=== PATIENT | male | born 1935 | race Caucasian/White ===

== ENCOUNTER 2018-12-25 07:51 | Emergency (ER) | payer MEDICARE, BC ==
[2018-12-25 07:58] VITALS: TEMP 98.3
--- NOTE | 2018-12-25 08:23 | ED ---
General Adult HPI - General Chief complaint: Chest Pain Stated complaint: Chest Pain Time Seen by Provider: 12/25/18 07:57 Source: patient Mode of arrival: wheelchair Limitations: no limitations - History of Present Illness Initial comments: Dictation was produced using [employer] dictation software. please excuse any grammatical, word or spelling errors. Chief Complaint: 83-year-old male presents with 2 days of chest pressure. History of Present Illness: 83-year-old male presents with 2 days of chest pressure. Did not feel like his symptoms are severe. He did not want come to the emergency department given the mild symptoms. He went to his son's house early this morning and total body. Patient was brought to the emergency department by his son. Patient has no history of heart attack. Patient has history of stroke and atrial fibrillation. He is unable course. Patient states he is feeling okay now was concerned that this could be his heart. He is here today because he wants to be checked out to make sure is not having a heart issue. Denies any nausea, vomiting. No radiation of pain to the shoulders or the neck. The ROS documented in this emergency department record has been reviewed and confirmed by me. Those systems with pertinent positive or negative responses have been documented in the HPI. All other systems are other negative and/or noncontributory. PHYSICAL EXAM: General Impression: Alert and oriented x3, not in acute distress HEENT: Normocephalic atraumatic, extra-ocular movements intact, pupils equal and reactive to light bilaterally, mucous membranes moist. Cardiovascular: Heart regular rate and rhythm, S1&S2 audible, no murmurs, rubs or gallops Chest: Lungs clear to auscultation bilaterally, no rhonchi, no wheeze, no rales Abdomen: Bowel sounds present, abdomen soft, non-tender, non-distended, no organomegaly Musculoskeletal: Pulses present and equal in all extremities, no peripheral edema Motor: Power 5/5 bilaterally, no focal deficits noted Neurological: CN II-XII grossly intact, no focal motor or sensory deficits noted Skin: Intact with no visualized rashes Psych: Normal affect and mood ED course: 83-year-old male presents with atypical chest pain with typical features. Signs upon arrival are within acceptable limits. Patient's well- appearing. Physical examination is benign. EKG doesn't show any signs of infarction or ischemia. Patient has history of atrial fibrillation takes liquids. This point with his primary care physician tomorrow.Laboratory evaluation obtained. Patient has mild leukocytosis of 12.9. Metabolic panel is unremarkable. O2 sat troponins are negative. Patient was observed in emergency department for several hours with no change in medical status. X-ray showed possible developing acute infiltrate versus atelectasis. Patient did report some increased coughing. Patient be given Zithromax pack. He has an appointment with his primary care physician tomorrow. Patient told to return to the emergency Department with any worsening symptoms. Vision understandable and agreeable to plan. Patient is given an aspirin. EKG interpretation: Ventricular rate 84, A. fib, QRS 96, QTC 432.. No [place] prolongation, no QTC prolongation, no ST or T-wave changes noted. Overall, this EKG is unremarkable - Related Data Home Medications Medication Instructions Recorded Confirmed metFORMIN HCL [Glucophage] 500 mg PO BID 01/25/15 12/25/18 Atorvastatin [Lipitor] 20 mg PO HS 12/25/18 12/25/18 Lisinopril-Hctz 20-12.5 mg 1 tab PO BID 12/25/18 12/25/18 [Zestoretic 20-12.5] Metoprolol Tartrate [Lopressor] 50 mg PO DAILY 12/25/18 12/25/18 amLODIPine [Norvasc] 5 mg PO BID 12/25/18 12/25/18 Previous Rx's Medication Instructions Recorded Apixaban [Eliquis] 5 mg PO BID #60 tab 07/20/16 Glimepiride [Amaryl] 1 mg PO BID #60 tab 07/20/16 Azithromycin [Zithromax Z-pack] 0 mg PO DIRECTED #6 tab 12/25/18 Allergies Allergy/AdvReac Type Severity Reaction Status Date / Time No Known Allergies Allergy Verified 07/19/16 09:31 Review of Systems ROS Statement: Those systems with pertinent positive or pertinent negative responses have been documented in the HPI. ROS Other: All systems not noted in ROS Statement are negative. Past Medical History Past Medical History: Atrial Fibrillation, Diabetes Mellitus, Hypertension History of Any Multi-Drug Resistant Organisms: None Reported Past Surgical History: Hernia Repair Past Anesthesia/Blood Transfusion Reactions: No Reported Reaction Past Psychological History: No Psychological Hx Reported Smoking Status: Never smoker Past Alcohol Use History: None Reported Past Drug Use History: None Reported General Exam Limitations: no limitations Course Vital Signs 12/25/18 12/25/18 12/25/18 07:56 09:50 10:00 Temperature 98.3 F Pulse Rate 89 68 71 Respiratory 18 18 18 Rate Blood Pressure 157/79 134/88 134/88 O2 Sat by Pulse 95 95 97 Oximetry 12/25/18 12/25/18 12/25/18 10:30 11:00 11:21 Temperature Pulse Rate 74 76 80 Respiratory 20 18 20 Rate Blood Pressure 133/79 145/89 149/78 O2 Sat by Pulse 96 98 Oximetry Medical Decision Making - Lab Data Result diagrams: 12/25/18 08:27 12/25/18 08:27 Lab Results 12/25/18 12/25/18 12/25/18 Range/Units 08:27 08:27 08:27 WBC 12.9 H (3.8-10.6) k/uL RBC 4.91 (4.30-5.90) m/uL Hgb 13.7 (13.0-17.5) gm/dL Hct 42.5 (39.0-53.0) % MCV 86.6 (80.0-100.0) fL MCH 28.0 (25.0-35.0) pg MCHC 32.3 (31.0-37.0) g/dL RDW 14.4 (11.5-15.5) % Plt Count 212 (150-450) k/uL Neutrophils % 83 % Lymphocytes % 8 % Monocytes % 6 % Eosinophils % 1 % Basophils % 0 % Neutrophils # 10.8 H (1.3-7.7) k/uL Lymphocytes # 1.0 (1.0-4.8) k/uL Monocytes # 0.8 (0-1.0) k/uL Eosinophils # 0.2 (0-0.7) k/uL Basophils # 0.0 (0-0.2) k/uL Sodium 140 (137-145) mmol/L Potassium 3.3 L (3.5-5.1) mmol/L Chloride 102 (98-107) mmol/L Carbon Dioxide 30 (22-30) mmol/L Anion Gap 8 mmol/L BUN 19 (9-20) mg/dL Creatinine 0.77 (0.66-1.25) mg/dL Est GFR (CKD-EPI)AfAm >90 (>60 ml/min/1.73 sqM) Est GFR (CKD-EPI)NonAf 84 (>60 ml/min/1.73 sqM) Glucose 195 H (74-99) mg/dL Calcium 9.5 (8.4-10.2) mg/dL Magnesium 1.8 (1.6-2.3) mg/dL Total Creatine Kinase 44 L (55-170) U/L CK-MB (CK-2) 1.4 (0.0-2.4) ng/mL CK-MB (CK-2) Rel Index 3.2 Troponin I 0.012 (0.000-0.034) ng/mL 12/25/18 Range/Units 12:30 WBC (3.8-10.6) k/uL RBC (4.30-5.90) m/uL Hgb (13.0-17.5) gm/dL Hct (39.0-53.0) % MCV (80.0-100.0) fL MCH (25.0-35.0) pg MCHC (31.0-37.0) g/dL RDW (11.5-15.5) % Plt Count (150-450) k/uL Neutrophils % % Lymphocytes % % Monocytes % % Eosinophils % % Basophils % % Neutrophils # (1.3-7.7) k/uL Lymphocytes # (1.0-4.8) k/uL Monocytes # (0-1.0) k/uL Eosinophils # (0-0.7) k/uL Basophils # (0-0.2) k/uL Sodium (137-145) mmol/L Potassium (3.5-5.1) mmol/L Chloride (98-107) mmol/L Carbon Dioxide (22-30) mmol/L Anion Gap mmol/L BUN (9-20) mg/dL Creatinine (0.66-1.25) mg/dL Est GFR (CKD-EPI)AfAm (>60 ml/min/1.73 sqM) Est GFR (CKD-EPI)NonAf (>60 ml/min/1.73 sqM) Glucose (74-99) mg/dL Calcium (8.4-10.2) mg/dL Magnesium (1.6-2.3) mg/dL Total Creatine Kinase (55-170) U/L CK-MB (CK-2) (0.0-2.4) ng/mL CK-MB (CK-2) Rel Index Troponin I <0.012 (0.000-0.034) ng/mL Disposition Clinical Impression: Chest pain Disposition: HOME SELF-CARE Condition: Good Instructions (If sedation given, give patient instructions): Chest Pain (ED) Prescriptions: Azithromycin [Zithromax Z-pack] 0 mg PO DIRECTED #6 tab Is patient prescribed a controlled substance at d/c from ED?: No Referrals: Robert Carlisle MD [Primary Care Provider] - 1-2 days Time of Disposition: 13:24
[2018-12-25 08:42] LABS: Basophils % (A) 0 %; Eosinophils # (A) 0.2 k/uL (0-0.7); Eosinophils % (A) 1 %; HCT 42.5 % (39.0-53.0); HGB 13.7 gm/dL (13.0-17.5); Lymphocytes % (A) 8 %; MCHC 32.3 g/dL (31.0-37.0); MCV 86.6 fL (80.0-100.0); Mean Platelet Volume 8.7; Monocytes # (A) 0.8 k/uL (0-1.0); Monocytes % (A) 6 %; Neutrophils # (A) 10.8 k/uL (1.3-7.7); Neutrophils % (A) 83 %; Platelet Count 212 k/uL (150-450); RBC 4.91 m/uL (4.30-5.90); RDW 14.4 % (11.5-15.5); WBC 12.9 k/uL (3.8-10.6)
[2018-12-25 08:59] LABS: Anion Gap 8 mmol/L; Blood Urea Nitrogen 19 mg/dL (9-20); Calcium 9.5 mg/dL (8.4-10.2); Carbon Dioxide 30 mmol/L (22-30); Chloride 102 mmol/L (98-107); Glucose 195 mg/dL (74-99); Magnesium 1.8 mg/dL (1.6-2.3); Potassium 3.3 mmol/L (3.5-5.1); Sodium 140 mmol/L (137-145)
[2018-12-25 09:14] LABS: Creatine Kinase MB 1.4 ng/mL (0.0-2.4); Troponin I 0.012 ng/mL (0.000-0.034)
[2018-12-25] MEDS ORDERED: POTASSIUM CHLORIDE ER 20 MEQ TAB.ER PO STA (09:37)
--- NOTE | 2018-12-25 10:32 | XR ---
EXAMINATION TYPE: XR chest 2V DATE OF EXAM: 12/25/2018 COMPARISON: Prior chest x-ray October 04, 2016 HISTORY: Weakness and chest pain. TECHNIQUE: Frontal and lateral views of the chest are obtained. FINDINGS: Slightly elevated right hemidiaphragm is redemonstrated. There is patchy right basilar sca rring and\or atelectasis. There is new left basilar opacity. No pleural effusion or pneumothorax is s een bilaterally. The cardiac silhouette size is enlarged with atherosclerotic aorta. Calcified left suprahilar lymph nodes are seen. The osseous structures are intact. IMPRESSION: Chronic parenchymal changes and cardiomegaly with patchy right basilar scarring and/or a telectasis. New developing left basilar acute infiltrate and/or atelectasis is noted.
[2018-12-25 11:23] VITALS: BP 149/78; PULSE 80; RESP 20
[2018-12-25] MEDS ORDERED: ASPIRIN 81 MG PO STA (13:23)
== END 2018-12-25 13:42 | disposition home or self-care (01) ==
LOC: EC 07:51
DX: R07.89 Other chest pain (principal); D72.829 Elevated white blood cell count, unspecified; R05 Cough; E11.9 Type 2 diabetes mellitus without complications; I10 Essential (primary) hypertension; Z86.73 Personal history of transient ischemic attack (TIA), and cerebral infarction without residual deficits; Z79.84 Long term (current) use of oral hypoglycemic drugs; Z79.899 Other long term (current) drug therapy
CPT/HCPCS: 36415; 71046; 80048; 82550; 82553; 83735; 84484; 85025; 99285

== ENCOUNTER → 2018-12-27 | Outpatient (CLI) | payer MEDICARE, BC ==
--- NOTE | 2018-12-27 10:47 | ECHOS ---
STRESS ECHOCARDIOGRAM DATE OF SERVICE: 12/27/2018 INDICATION: Chest pain. MEDICATIONS: Lisinopril, metoprolol, aspirin, amlodipine, glyburide, Eliquis. BASELINE HEART RATE: 99 BASELINE BLOOD PRESSURE: 104/72 MAXIMUM HEART RATE: 151 MAXIMUM BLOOD PRESSURE: 188/82 85% MPHR: 116 100% MPHR: 136 METS: 5 MAXIMUM STAGE REACHED: II TOTAL EXERCISE TIME: 3-1/2 minutes CLINICAL INFORMATION: Baseline EKG shows atrial fibrillation with poor R-wave progression and nonspecific ST- T wave changes. Patient exercised on Rad protocol for a total of 3-1/2 minutes achieving 5 METs, 100% of predicted maximal heart rate without chest pain or diagnostic ST-segment depression. Frequent PVCs were noted during exercise. Baseline echo shows normal left ventricular size, wall motion and systolic function. Postexercise, there is normal hyperdynamic response of all segments of myocardium noted. CONCLUSIONS: 1. Poor exercise tolerance. 2. Inconclusive EKG part of the stress test due to baseline EKG abnormalities. 3. Negative stress echo. MMODL / IJN: [id number] /
== END | disposition home or self-care (01) ==
LOC: RADNMMAIN 09:04
PROVIDERS: ATTEND Internal Medicine
DX: R94.31 Abnormal electrocardiogram [ECG] [EKG] (principal); R07.9 Chest pain, unspecified
CPT/HCPCS: 93351

== ENCOUNTER 2020-02-23 12:45 | Inpatient (IN) | payer MEDICARE, BC ==
[2020-02-23] MEDS ORDERED: SODIUM CHLORIDE 0.9% 1,000 ML IV ONE ×3 (12:48→14:03)
--- NOTE | 2020-02-23 12:53 | ED ---
General Adult HPI - General Stated complaint: weakness/altered mental status Time Seen by Provider: 02/23/20 12:45 Source: EMS, RN notes reviewed, old records reviewed - History of Present Illness Initial comments: This is an 84-year-old male who has a past medical history of high blood pressure and diabetes. He was last seen normal sometime yesterday afternoon son came in to see him today he was unresponsive and incontinent of stool. Patient is unable to give any history. Patient is unable to follow any commands. Patient does withdraw from pain but weakly. Patient seems to be able to move both of his legs but difficult to assess any movement of the arms since he is not following any commands. There is no other history available at this time son is yet to arrive. Glucose was over 500 according to EMS - Related Data Home Medications Medication Instructions Recorded Confirmed metFORMIN HCL [Glucophage] 1,000 mg PO HS 01/25/15 02/23/20 Atorvastatin [Lipitor] 20 mg PO DAILY 12/25/18 02/23/20 Lisinopril-Hctz 20-12.5 mg 1 tab PO BID 12/25/18 02/23/20 [Zestoretic 20-12.5] Metoprolol Tartrate [Lopressor] 50 mg PO DAILY 12/25/18 02/23/20 amLODIPine [Norvasc] 5 mg PO DAILY 12/25/18 02/23/20 Cephalexin [Keflex] 500 mg PO TID 02/23/20 02/23/20 Dapagliflozin Propanediol [Farxiga] 5 mg PO DAILY 02/23/20 02/23/20 Pioglitazone [Actos] 15 mg PO Q48H 02/23/20 02/23/20 Sildenafil Citrate 50 mg PO DAILY PRN 02/23/20 02/23/20 Previous Rx's Medication Instructions Recorded Apixaban [Eliquis] 5 mg PO BID #60 tab 07/20/16 Glimepiride [Amaryl] 1 mg PO BID #60 tab 07/20/16 Allergies Allergy/AdvReac Type Severity Reaction Status Date / Time No Known Allergies Allergy Verified 02/23/20 13:53 Review of Systems ROS Statement: Those systems with pertinent positive or pertinent negative responses have been documented in the HPI. ROS Other: All systems not noted in ROS Statement are negative. Past Medical History Past Medical History: Atrial Fibrillation, Diabetes Mellitus, Hypertension History of Any Multi-Drug Resistant Organisms: None Reported Past Surgical History: Hernia Repair Past Anesthesia/Blood Transfusion Reactions: No Reported Reaction Past Psychological History: No Psychological Hx Reported Smoking Status: Never smoker Past Alcohol Use History: None Reported Past Drug Use History: None Reported General Exam - General Exam Comments Initial Comments: GENERAL: Patient is well-developed and well-nourished. Patient is completely unresponsive. ENT: Neck is soft and supple. No significant lymphadenopathy is noted. Oropharynx is clear. Dry mucous membranes. Neck has full range of motion without eliciting any pain. EYES: The sclera were anicteric and conjunctiva were pink and moist. Extraocular movements were intact and pupils were equal round and reactive to light. Eyelids were unremarkable. PULMONARY: Unlabored respirations. Good breath sounds bilaterally. No audible rales rhonchi or wheezing was noted. CARDIOVASCULAR: There is a regular rate and rhythm without any murmurs gallops or rubs. ABDOMEN: Soft and nontender with normal bowel sounds. No palpable organomegaly was noted. There is no palpable pulsatile mass. SKIN: Skin is clear with no lesions or rashes and otherwise unremarkable. NEUROLOGIC: Patient does not follow any commands he is not alert and he only withdraws a little bit to painful stimuli MUSCULOSKELETAL: Normal extremities with adequate strength and full range of motion. LYMPHATICS: No significant lymphadenopathy is noted PSYCHIATRIC: Unable to assess secondary to altered mental status Course Vital Signs 02/23/20 02/23/20 02/23/20 12:45 13:10 13:19 Temperature 97.6 F 97.6 F Pulse Rate 94 92 90 Respiratory 18 18 18 Rate Blood Pressure 163/110 153/89 O2 Sat by Pulse 96 98 97 Oximetry 02/23/20 13:30 Temperature Pulse Rate 88 Respiratory 17 Rate Blood Pressure 141/97 O2 Sat by Pulse 98 Oximetry Medical Decision Making - Medical Decision Making EKG shows atrial fibrillation at 91 bpm QRS is 102 QT interval 348 QTC is 428. Patient's EKG also shows multiple PVCs. CT of the brain shows no acute abnormality. Chest x-ray shows cardiomegaly but no other Patient remains unresponsive. Son is the power of appian developer and he indicated that the patient did not want any life support provided all. He agreed with a DO NOT RESUSCITATE. After I admitted the patient patient son called me in the room and wanted to let me know that his father was taking some pills that normally would go into a fish tank that he got from his neighbor. Patient's son states that these pills look to him like the Keflex pills that he later got from his physician. He does not know what the pills were awoken a bottle he came in - Lab Data Result diagrams: 02/23/20 12:45 02/23/20 12:45 Lab Results 02/23/20 02/23/20 02/23/20 Range/Units 12:45 12:45 12:45 WBC 11.4 H (3.8-10.6) k/uL RBC 5.20 (4.30-5.90) m/uL Hgb 14.4 (13.0-17.5) gm/dL Hct 45.3 (39.0-53.0) % MCV 87.2 (80.0-100.0) fL MCH 27.7 (25.0-35.0) pg MCHC 31.8 (31.0-37.0) g/dL RDW 14.3 (11.5-15.5) % Plt Count 249 (150-450) k/uL Neutrophils % 90 % Lymphocytes % 5 % Monocytes % 3 % Eosinophils % 1 % Basophils % 0 % Neutrophils # 10.3 H (1.3-7.7) k/uL Lymphocytes # 0.6 L (1.0-4.8) k/uL Monocytes # 0.3 (0-1.0) k/uL Eosinophils # 0.1 (0-0.7) k/uL Basophils # 0.0 (0-0.2) k/uL PT 11.6 (9.0-12.0) sec INR 1.1 (<1.2) APTT 26.6 (22.0-30.0) sec Sodium 136 L (137-145) mmol/L Potassium 3.7 (3.5-5.1) mmol/L Chloride 101 (98-107) mmol/L Carbon Dioxide 28 (22-30) mmol/L Anion Gap 7 mmol/L BUN 21 H (9-20) mg/dL Creatinine 0.74 (0.66-1.25) mg/dL Est GFR (CKD-EPI)AfAm >90 (>60 ml/min/1.73 sqM) Est GFR (CKD-EPI)NonAf 84 (>60 ml/min/1.73 sqM) Glucose 187 H (74-99) mg/dL POC Glucose (mg/dL) (75-99) mg/dL POC Glu Weed Cooking Operator ID Plasma Lactic Acid Satish (0.7-2.0) mmol/L Calcium 9.1 (8.4-10.2) mg/dL Total Bilirubin 0.8 (0.2-1.3) mg/dL AST 21 (17-59) U/L ALT 12 (4-49) U/L Alkaline Phosphatase 70 (38-126) U/L Troponin I (0.000-0.034) ng/mL Total Protein 7.0 (6.3-8.2) g/dL Albumin 4.1 (3.5-5.0) g/dL Urine Color Urine Appearance (Clear) Urine pH (5.0-8.0) Ur Specific Marion (1.001-1.035) Urine Protein (Negative) Urine Glucose (UA) (Negative) Urine Ketones (Negative) Urine Blood (Negative) Urine Nitrite (Negative) Urine Bilirubin (Negative) Urine Urobilinogen (<2.0) mg/dL Ur Leukocyte Esterase (Negative) Urine Opiates Screen (NotDetected) Ur Oxycodone Screen (NotDetected) Urine Methadone Screen (NotDetected) Ur Propoxyphene Screen (NotDetected) Ur Barbiturates Screen (NotDetected) U Tricyclic Antidepress (NotDetected) Ur Phencyclidine Scrn (NotDetected) Ur Amphetamines Screen (NotDetected) U Methamphetamines Scrn (NotDetected) U Benzodiazepines Scrn (NotDetected) Urine Cocaine Screen (NotDetected) U Marijuana (THC) Screen (NotDetected) Acetone, Qual (Negative) 02/23/20 02/23/20 02/23/20 Range/Units 12:45 12:45 12:45 WBC (3.8-10.6) k/uL RBC (4.30-5.90) m/uL Hgb (13.0-17.5) gm/dL Hct (39.0-53.0) % MCV (80.0-100.0) fL MCH (25.0-35.0) pg MCHC (31.0-37.0) g/dL RDW (11.5-15.5) % Plt Count (150-450) k/uL Neutrophils % % Lymphocytes % % Monocytes % % Eosinophils % % Basophils % % Neutrophils # (1.3-7.7) k/uL Lymphocytes # (1.0-4.8) k/uL Monocytes # (0-1.0) k/uL Eosinophils # (0-0.7) k/uL Basophils # (0-0.2) k/uL PT (9.0-12.0) sec INR (<1.2) APTT (22.0-30.0) sec Sodium (137-145) mmol/L Potassium (3.5-5.1) mmol/L Chloride (98-107) mmol/L Carbon Dioxide (22-30) mmol/L Anion Gap mmol/L BUN (9-20) mg/dL Creatinine (0.66-1.25) mg/dL Est GFR (CKD-EPI)AfAm (>60 ml/min/1.73 sqM) Est GFR (CKD-EPI)NonAf (>60 ml/min/1.73 sqM) Glucose (74-99) mg/dL POC Glucose (mg/dL) (75-99) mg/dL POC Glu Weed Cooking Operator ID Plasma Lactic Acid Satish 1.5 (0.7-2.0) mmol/L Calcium (8.4-10.2) mg/dL Total Bilirubin (0.2-1.3) mg/dL AST (17-59) U/L ALT (4-49) U/L Alkaline Phosphatase (38-126) U/L Troponin I <0.012 (0.000-0.034) ng/mL Total Protein (6.3-8.2) g/dL Albumin (3.5-5.0) g/dL Urine Color Light Yellow Urine Appearance Clear (Clear) Urine pH 7.0 (5.0-8.0) Ur Specific Marion 1.015 (1.001-1.035) Urine Protein Trace H (Negative) Urine Glucose (UA) 4+ H (Negative) Urine Ketones 1+ H (Negative) Urine Blood Negative (Negative) Urine Nitrite Negative (Negative) Urine Bilirubin Negative (Negative) Urine Urobilinogen <2.0 (<2.0) mg/dL Ur Leukocyte Esterase Negative (Negative) Urine Opiates Screen Not Detected (NotDetected) Ur Oxycodone Screen Not Detected (NotDetected) Urine Methadone Screen Not Detected (NotDetected) Ur Propoxyphene Screen Not Detected (NotDetected) Ur Barbiturates Screen Not Detected (NotDetected) U Tricyclic Antidepress Not Detected (NotDetected) Ur Phencyclidine Scrn Not Detected (NotDetected) Ur Amphetamines Screen Not Detected (NotDetected) U Methamphetamines Scrn Not Detected (NotDetected) U Benzodiazepines Scrn Not Detected (NotDetected) Urine Cocaine Screen Not Detected (NotDetected) U Marijuana (THC) Screen Not Detected (NotDetected) Acetone, Qual (Negative) 02/23/20 02/23/20 Range/Units 12:45 12:57 WBC (3.8-10.6) k/uL RBC (4.30-5.90) m/uL Hgb (13.0-17.5) gm/dL Hct (39.0-53.0) % MCV (80.0-100.0) fL MCH (25.0-35.0) pg MCHC (31.0-37.0) g/dL RDW (11.5-15.5) % Plt Count (150-450) k/uL Neutrophils % % Lymphocytes % % Monocytes % % Eosinophils % % Basophils % % Neutrophils # (1.3-7.7) k/uL Lymphocytes # (1.0-4.8) k/uL Monocytes # (0-1.0) k/uL Eosinophils # (0-0.7) k/uL Basophils # (0-0.2) k/uL PT (9.0-12.0) sec INR (<1.2) APTT (22.0-30.0) sec Sodium (137-145) mmol/L Potassium (3.5-5.1) mmol/L Chloride (98-107) mmol/L Carbon Dioxide (22-30) mmol/L Anion Gap mmol/L BUN (9-20) mg/dL Creatinine (0.66-1.25) mg/dL Est GFR (CKD-EPI)AfAm (>60 ml/min/1.73 sqM) Est GFR (CKD-EPI)NonAf (>60 ml/min/1.73 sqM) Glucose (74-99) mg/dL POC Glucose (mg/dL) 254 H (75-99) mg/dL POC Glu Weed Cooking Operator ID Abbie Valero Plasma Lactic Acid Satish (0.7-2.0) mmol/L Calcium (8.4-10.2) mg/dL Total Bilirubin (0.2-1.3) mg/dL AST (17-59) U/L ALT (4-49) U/L Alkaline Phosphatase (38-126) U/L Troponin I (0.000-0.034) ng/mL Total Protein (6.3-8.2) g/dL Albumin (3.5-5.0) g/dL Urine Color Urine Appearance (Clear) Urine pH (5.0-8.0) Ur Specific Marion (1.001-1.035) Urine Protein (Negative) Urine Glucose (UA) (Negative) Urine Ketones (Negative) Urine Blood (Negative) Urine Nitrite (Negative) Urine Bilirubin (Negative) Urine Urobilinogen (<2.0) mg/dL Ur Leukocyte Esterase (Negative) Urine Opiates Screen (NotDetected) Ur Oxycodone Screen (NotDetected) Urine Methadone Screen (NotDetected) Ur Propoxyphene Screen (NotDetected) Ur Barbiturates Screen (NotDetected) U Tricyclic Antidepress (NotDetected) Ur Phencyclidine Scrn (NotDetected) Ur Amphetamines Screen (NotDetected) U Methamphetamines Scrn (NotDetected) U Benzodiazepines Scrn (NotDetected) Urine Cocaine Screen (NotDetected) U Marijuana (THC) Screen (NotDetected) Acetone, Qual Negative (Negative) Disposition Clinical Impression: Unresponsive, Ingestion of substance Disposition: ADMITTED IP TO THIS [facility] Referrals: Robert Carlisle MD [Primary Care Provider] - 1-2 days Time of Disposition: 14:03
[2020-02-23 13:08] LABS: Glucose,Whole Blood 254 mg/dL (75-99)
--- NOTE | 2020-02-23 13:11 | CT ---
EXAMINATION TYPE: CT brain wo con DATE OF EXAM: 02/23/2020 COMPARISON: Previous study dated 07/19/2016 HISTORY: Altered mental status. CT DLP: 1158.4 mGycm Automated exposure control for dose reduction was used. FINDINGS: There are generalized changes of sulcal prominence and ventriculomegaly, compatible with atrophic yris nge. There is diffuse periventricular white matter lucency, compatible with chronic white matter isch emic change. There is vascular calcification of both vertebral and carotid arteries. There is no acut e focal lesion, mass effect or midline shift identified. I do not see evidence of intracranial blood. Visualized portions of the paranasal sinuses and mastoids are clear. The bony calvarium is intact. IMPRESSION: 1. NO ACUTE INTRACRANIAL ABNORMALITY. 2. GENERALIZED CHANGES OF ATROPHY. 3. CHRONIC WHITE MATTER ISCHEMIC CHANGE.
[2020-02-23 13:17] LABS: Appearance,Urine Clear (Clear); Basophils % (A) 0 %; Bilirubin,Urine Negative (Negative); Blood,Urine Negative (Negative); Color,Urine Light Yellow; Eosinophils # (A) 0.1 k/uL (0-0.7); Eosinophils % (A) 1 %; Glucose,Urine (UA) 4+ (Negative); HCT 45.3 % (39.0-53.0); HGB 14.4 gm/dL (13.0-17.5); Ketones,Urine 1+ (Negative); Leukocyte Esterase,Urine Negative (Negative); Lymphocytes # (A) 0.6 k/uL (1.0-4.8); Lymphocytes % (A) 5 %; MCH 27.7 pg (25.0-35.0); MCHC 31.8 g/dL (31.0-37.0); MCV 87.2 fL (80.0-100.0); Mean Platelet Volume 8.1; Monocytes # (A) 0.3 k/uL (0-1.0); Monocytes % (A) 3 %; Neutrophils # (A) 10.3 k/uL (1.3-7.7); Neutrophils % (A) 90 %; Nitrite,Urine Negative (Negative); Platelet Count 249 k/uL (150-450); Protein,Urine Trace (Negative); RDW 14.3 % (11.5-15.5); Specific Gravity,Urine 1.015 (1.001-1.035); Urobilinogen,Urine <2.0 mg/dL (<2.0); WBC 11.4 k/uL (3.8-10.6)
[2020-02-23 13:26] LABS: ALT 12 U/L (4-49); AST 21 U/L (17-59); African American GFR (CKD) >90 (>60 ml/min/1.73 sqM); Albumin 4.1 g/dL (3.5-5.0); Alkaline Phosphatase 70 U/L (38-126); Anion Gap 7 mmol/L; Blood Urea Nitrogen 21 mg/dL (9-20); Calcium 9.1 mg/dL (8.4-10.2); Carbon Dioxide 28 mmol/L (22-30); Chloride 101 mmol/L (98-107); Glucose 187 mg/dL (74-99); INR 1.1 (<1.2); Non-African American GFR(CKD) 84 (>60 ml/min/1.73 sqM); Partial Thromboplastin Time 26.6 sec (22.0-30.0); Potassium 3.7 mmol/L (3.5-5.1); Prothrombin Time 11.6 sec (9.0-12.0); Sodium 136 mmol/L (137-145); Total Bilirubin 0.8 mg/dL (0.2-1.3)
[2020-02-23 13:37] LABS: Amphetamine Screen,Urine Not Detected (NotDetected); Barbiturate Screen,Urine Not Detected (NotDetected); Benzodiazepines Screen,Urine Not Detected (NotDetected); Cocaine Screen,Urine Not Detected (NotDetected); Methadone Screen, Urine Not Detected (NotDetected); Opiate Screen,Urine Not Detected (NotDetected); Oxycodone Screen, Urine Not Detected (NotDetected); Phencyclidine Screen,Urine Not Detected (NotDetected); Tricyclic Antidepressant,Urine Not Detected (NotDetected); Urn Cannabinoid Scrn Not Detected (NotDetected)
--- NOTE | 2020-02-23 13:41 | XR ---
EXAMINATION TYPE: XR chest 2V DATE OF EXAM: 02/23/2020 HISTORY: altered mental status. REFERENCE: Previous study dated 12/25/2019. FINDINGS: The heart is enlarged. There is unfolding and ectasia of the thoracic aorta. There is chron ic apparent elevation of the right hemidiaphragm. There is mild vascular congestion without edema. IMPRESSION: CARDIOMEGALY AND VASCULAR CONGESTION.
--- NOTE | 2020-02-23 16:10 | MR ---
EXAMINATION TYPE: MR brain wo con DATE OF EXAM: 02/23/2020 COMPARISON: 07/19/2016 HISTORY: Confusion Multiplanar multiecho imaging of the brain was performed without contrast. On the diffusion images there is 7 x 4.5 cm area of increased signal in the left middle cerebral oc ry distribution consistent with infarct. There is thinning of the corpus callosum. There is no mass effect nor midline shift. There is no sign of intracranial hemorrhage. There is diffuse cerebral cortical atrophy. On the T2 and FLAIR images there is diffuse increased sig nal in the periventricular white matter. The brainstem is intact. Cerebellum is intact. 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 This is a change compared to old exam. Cerebral atrophy and chronic small vessel ischemia.
[2020-02-23] MEDS ORDERED: ONDANSETRON 4 MG/2 ML VIAL IVP PRN (17:08)
[2020-02-23] MEDS ORDERED: ASPIRIN 81 MG PO SCH (17:30)
[2020-02-23] MEDS: ENOXAPARIN 40 MG/0.4 ML SYRINGE SQ SCH (18:01)
[2020-02-23] MEDS: ASPIRIN 300 MG SUPP RECTAL SCH (18:10)
[2020-02-23] MEDS: INSULIN ASPART (NovoLOG) 100 UNIT/ML VIAL SQ SCH ×2 (18:19→21:12)
[2020-02-23 18:30] LABS: Glucose,Whole Blood 135 mg/dL (75-99)
--- NOTE | 2020-02-23 20:01 | P.HPIM ---
History of Present Illness H&P Date: 02/23/20 Chief Complaint: unresponsive 84 yo male, found on to be unresponsive on the floor by his soon. Last seen normal was the day before. Patient's eyes are open, he is sometimes tracing, does not respond to commands, non verbal. Hx obtined from daughter over the phone. He has a history of CVA in the past with no significant residual weakness, currently on Eliquis (possibly for afib?). Head Ct was normal, MRI shows large left parietal stroke. patient is moving his legs and left arm only, right arm has been flacid. Vitals stable, outside tPA window and on Eliquis. Per daughter, patient has been in his normal state of health the day before and did not have any symptoms. Review of Systems ROS unobtainable: due to mental status Past Medical History Past Medical History: Atrial Fibrillation, Diabetes Mellitus, Hyperlipidemia, Hypertension History of Any Multi-Drug Resistant Organisms: None Reported Past Surgical History: Hernia Repair Past Anesthesia/Blood Transfusion Reactions: No Reported Reaction Past Psychological History: No Psychological Hx Reported Smoking Status: Never smoker Past Alcohol Use History: None Reported Past Drug Use History: None Reported Medications and Allergies Home Medications Medication Instructions Recorded Confirmed Type metFORMIN HCL [Glucophage] 1,000 mg PO HS 01/25/15 02/23/20 History Apixaban [Eliquis] 5 mg PO BID #60 tab 07/20/16 02/23/20 Rx Glimepiride [Amaryl] 1 mg PO BID #60 tab 07/20/16 02/23/20 Rx Atorvastatin [Lipitor] 20 mg PO DAILY 12/25/18 02/23/20 History Lisinopril-Hctz 20-12.5 mg 1 tab PO BID 12/25/18 02/23/20 History [Zestoretic 20-12.5] Metoprolol Tartrate [Lopressor] 50 mg PO DAILY 12/25/18 02/23/20 History amLODIPine [Norvasc] 5 mg PO DAILY 12/25/18 02/23/20 History Cephalexin [Keflex] 500 mg PO TID 02/23/20 02/23/20 History Dapagliflozin Propanediol [Farxiga] 5 mg PO DAILY 02/23/20 02/23/20 History Pioglitazone [Actos] 15 mg PO Q48H 02/23/20 02/23/20 History Sildenafil Citrate 50 mg PO DAILY PRN 02/23/20 02/23/20 History Allergies Allergy/AdvReac Type Severity Reaction Status Date / Time No Known Allergies Allergy Verified 02/23/20 13:53 Physical Exam Osteopathic Statement: *. No significant issues noted on an osteopathic structural exam other than those noted in the History and Physical/Consult. Vitals: Vital Signs Temp Pulse Pulse Resp BP BP Pulse Ox 02/23/20 17:17 98.5 F 02/23/20 16:13 94.3 F L 96 19 155/75 93 L 02/23/20 15:00 97.6 F 80 18 149/86 02/23/20 14:30 86 21 145/97 96 02/23/20 14:00 72 20 133/87 96 02/23/20 13:30 88 17 141/97 98 02/23/20 13:19 97.6 F 90 18 97 02/23/20 13:10 92 18 153/89 98 02/23/20 12:45 97.6 F 94 18 163/110 96 Intake and Output 02/23/20 02/23/20 02/23/20 06:59 14:59 22:59 Output Total 450 Balance -450 Output: Urine 450 Other: Voiding Method Indwelling Catheter Weight 90.718 kg - Constitutional General appearance: average body habitus, no cooperative - EENT pupils equal, minimally reactive -left sided gaze, sometimes tracks/follows moving objects but cannot cross midline -unable to test visual alanis - Neck Neck: normal ROM, no rigidity - Respiratory Respiratory: bilateral: CTA - Cardiovascular Rhythm: regular Heart sounds: normal: S1, S2 Abnormal Heart Sounds: no systolic murmur - Gastrointestinal General gastrointestinal: normal bowel sounds, no tenderness - Neurologic pupils equal, minimally reactive -left sided gaze, sometimes tracks/follows moving objects but cannot cross midline -unable to test visual alanis no facial assymetry non verbal does not respond to commands moving both LE and LUE spont with no apparent loss of strength. RUE is flaccid - Psychiatric Psychiatric: no A&O x's 3 Results CBC & Chem 7: 02/23/20 12:45 02/23/20 12:45 Labs: Abnormal Lab Results - Last 24 Hours (Table) 02/23/20 02/23/20 02/23/20 Range/Units 12:45 12:45 12:45 WBC 11.4 H (3.8-10.6) k/uL Neutrophils # 10.3 H (1.3-7.7) k/uL Lymphocytes # 0.6 L (1.0-4.8) k/uL Sodium 136 L (137-145) mmol/L BUN 21 H (9-20) mg/dL Glucose 187 H (74-99) mg/dL POC Glucose (mg/dL) (75-99) mg/dL Urine Protein Trace H (Negative) Urine Glucose (UA) 4+ H (Negative) Urine Ketones 1+ H (Negative) 02/23/20 02/23/20 Range/Units 12:57 18:18 WBC (3.8-10.6) k/uL Neutrophils # (1.3-7.7) k/uL Lymphocytes # (1.0-4.8) k/uL Sodium (137-145) mmol/L BUN (9-20) mg/dL Glucose (74-99) mg/dL POC Glucose (mg/dL) 254 H 135 H (75-99) mg/dL Urine Protein (Negative) Urine Glucose (UA) (Negative) Urine Ketones (Negative) Thrombosis Risk Factor Assmnt - Choose All That Apply Any of the Below Risk Factors Present?: No Each Risk Factor Represents 2 Points: Patient confined to bed Each Risk Factor Represents 3 Points: Age 75 years or older Thrombosis Risk Factor Assessment Total Risk Factor Score: 5 Thrombosis Risk Factor Assessment Level: High Risk Assessment and Plan Plan: # Acute CVA -left MCA distribution, large acute stroke on MRI -outside tpa window and on Eliquis -Eliquis on hold for now due to high risk of hemorrhagic conversion -continue Aspirin, Statin -permissive HTN up to SBP 220 for the first 24 hrs -Neurology consult -PT/OT, speech therapy -2d Echo -Carotid US # Hx of DM II -oral meds on hold -continue insulin sliding scale # Hx of HTN -most home meds on hold for permissive HTN for first 24 hrs # Afib -Eliquis on hold due to large stroke -resumed metoprolol at half home dose, increase if tachycardic Time with Patient: Greater than 30
[2020-02-23 20:17] LABS: Glucose,Whole Blood 136 mg/dL (75-99)
--- NOTE | 2020-02-23 20:25 | US ---
EXAMINATION TYPE: US carotid duplex BILAT DATE OF EXAM: 02/23/2020 COMPARISON: 07/19/2016 CLINICAL HISTORY: CVA. Very limited study due to patient moving head the whole exam. EXAM MEASUREMENTS: RIGHT: Peak Systolic Velocity (PSV) cm/sec ----- Right CCA: 91.0 ----- Right ICA: 69.2 ----- Right ECA: 215.3 ICA/CCA ratio: 0.8 RIGHT: End Diastole cm/sec ----- Right CCA: 0 ----- Right ICA: 0 ----- Right ECA: 0 LEFT: Peak Systolic Velocity (PSV) cm/sec ----- Left CCA: 103.9 ----- Left ICA: 30.3 ----- Left ECA: 106.6 ICA/CCA ratio: 0.6 LEFT: End Diastole cm/sec ----- Left CCA: 0 ----- Left ICA: 0 ----- Left ECA: 0 VERTEBRALS (direction of flow): Right Vertebral: Antegrade Left Vertebral: Antegrade Rhythm: IMPRESSION: There is antegrade flow in the vertebral arteries. There is moderate bilateral plaque formation but s tenosis is estimated less than 50% in both internal carotid arteries. There is decreased diastolic fl ow in both carotid arteries. There is increased velocity right external carotid artery that is increa sed compared to old exam and corresponds to more than 70% stenosis. Criteria for Assigning % of Stenosis / Diameter reduction (Estimation based on the indirect measurements of the internal carotid artery velocities (ICA PSV). 1. Normal (no stenosis)=ICA PSV < 125 cm/s: ratio < 2.0: ICA EDV<40 cm/s. 2. Less than 50% stenosis=ICA PSV < 125 cm/s: ratio < 2.0: ICA EDV<40 cm/s. 3. 50 to 69% stenosis=ICA PSV of 125 to 230 cm/s: ration 2.0 ? 4.0: ICA EDV 40-100 cm/s. 4. Greater than 70% stenosis to near occlusion= ICA PSV > 230 cm/s: ratio > 4.0: ICA EDV > 100 cm/s. 5. Near occlusion= ICA PSV velocities may be low or undetectable: variable ratio and ICA EDV. 6. Total occlusion=unable to detect flow.
[2020-02-24 04:27] LABS: Glucose,Whole Blood 151 mg/dL (75-99)
[2020-02-24 06:40] LABS: Glucose,Whole Blood 163 mg/dL (75-99)
[2020-02-24 06:49] LABS: Basophils % (A) 0 %; Eosinophils # (A) 0.1 k/uL (0-0.7); Eosinophils % (A) 0 %; HCT 46.2 % (39.0-53.0); HGB 14.7 gm/dL (13.0-17.5); Lymphocytes # (A) 0.9 k/uL (1.0-4.8); Lymphocytes % (A) 5 %; MCH 28.1 pg (25.0-35.0); MCHC 31.8 g/dL (31.0-37.0); MCV 88.4 fL (80.0-100.0); Mean Platelet Volume 8.6; Monocytes # (A) 0.8 k/uL (0-1.0); Monocytes % (A) 5 %; Neutrophils # (A) 14.9 k/uL (1.3-7.7); Neutrophils % (A) 88 %; Platelet Count 318 k/uL (150-450); RBC 5.23 m/uL (4.30-5.90); RDW 14.4 % (11.5-15.5); WBC 16.9 k/uL (3.8-10.6)
[2020-02-24 07:07] LABS: ALT 14 U/L (4-49); AST 33 U/L (17-59); African American GFR (CKD) >90 (>60 ml/min/1.73 sqM); Albumin 3.9 g/dL (3.5-5.0); Alkaline Phosphatase 68 U/L (38-126); Anion Gap 17 mmol/L; Blood Urea Nitrogen 17 mg/dL (9-20); Calcium 9.1 mg/dL (8.4-10.2); Carbon Dioxide 18 mmol/L (22-30); Chloride 103 mmol/L (98-107); Glucose 163 mg/dL (74-99); Non-African American GFR(CKD) 86 (>60 ml/min/1.73 sqM); Potassium 3.6 mmol/L (3.5-5.1); Sodium 138 mmol/L (137-145); Total Protein 7.2 g/dL (6.3-8.2)
[2020-02-24] MEDS ORDERED: METOPROLOL TARTRATE 25 MG TAB PO SCH (09:00)
[2020-02-24] MEDS: INSULIN ASPART (NovoLOG) 100 UNIT/ML VIAL SQ SCH ×4 (09:41→23:03)
[2020-02-24] MEDS: ATORVASTATIN 20 MG TAB PO SCH (09:41)
[2020-02-24] MEDS ORDERED: METOPROLOL TARTRATE 5 MG/5 ML VIAL IVP PRN (09:46)
[2020-02-24] MEDS ORDERED: FUROSEMIDE 10 MG/ML 2 ML VIAL IV SCH ×2 (10:00→10:24)
[2020-02-24] MEDS ORDERED: METOPROLOL TARTRATE 5 MG/5 ML VIAL IVP ONE (10:24)
[2020-02-24] MEDS: ENOXAPARIN 40 MG/0.4 ML SYRINGE SQ SCH (10:44)
--- NOTE | 2020-02-24 10:51 | XR ---
EXAMINATION TYPE: XR chest 1V DATE OF EXAM: 02/24/2020 HISTORY: CHF. REFERENCE: Previous study dated 02/23/2020. FINDINGS: The heart remains enlarged. There is a stable, tiny pulmonary nodule in the right. The lung s are otherwise clear. Pleural spaces are clear. IMPRESSION: 1. CARDIOMEGALY. 2. TINY, STABLE RIGHT UPPER LOBE PULMONARY NODULE.
[2020-02-24] MEDS ORDERED: METOPROLOL TARTRATE 5 MG/5 ML VIAL IVP SCH (12:00)
--- NOTE | 2020-02-24 12:03 | P.CRDCN ---
History of Present Illness History of present illness: HISTORY OF PRESENTING ILLNESS This is a pleasant 84-year-old male past medical history significant for chronic persistent atrial fibrillation on long-term anticoagulation with Eliquis, dyslipidemia, diabetes mellitus and hypertension. He follows in the office with Dr. Kaufman. We have been asked to see in consultation for atrial fibrillation. He was brought to the hospital after being found unresponsive in his home for unknown amount of time. He was found to have suffered a large acute left middle cerebral artery infarct. He continues to be somewhat unresponsive and lethargic. He is not opening his eyes to verbal commands. His breathing is stable. EKG on arrival reveals atrial fibrillation with heart rate of 91. Chest x-ray r on admission eveals cardiomegaly and vascular congestion. Repeat today again shows cardiomegaly with a tiny stable right upper lobe pulmo nary nodule. No congestion noted. Laboratory data reviewed, WBC 16.9, hemoglobin 14.7, platelets 318, sodium 138, potassium 3.6, creatinine 0.71, magnesium 2.0, cardiac enzymes negative 1, NT proBNP 3490. Home daily cardiac medications include Eliquis 5 mg twice a day, atorvastatin 20 mg daily, lisinopril/HCTZ 20/12.5 mg twice a day, Lopressor 50 mg daily and Norvasc 5 mg daily. He is currently not taking anything by mouth pending a speech evaluation and secondary to mental status. Most recent echocardiogram obtained in the office December 2018 reveals preserved LV systolic function with ejection fraction 55%, mild to moderate mitral regurgitation, moderate tricuspid regurgitation and moderate pulmonary hypertension. REVIEW OF SYSTEMS At the time of my exam: Unable to obtain accurate review of systems secondary to altered mental status. PHYSICAL EXAMINATION Blood pressure 152/80 heart rate 87 afebrile and maintaining oxygen saturation on room air. CONSTITUTIONAL: No apparent distress. HEENT: Head is normocephalic. Pupils are equal, round. Sclerae anicteric. Mucous membranes of the mouth are moist. No JVD. No carotid bruit. CHEST EXAMINATION: Lungs are clear to auscultation. No chest wall tenderness is noted on palpation or with deep breathing. HEART EXAMINATION: Irregular rate and rhythm. S1, S2 heard. No murmurs, gallops or rub. ABDOMEN: Soft, nontender. Positive bowel sounds. EXTREMITIES: 2+ peripheral pulses, no lower extremity edema and no calf tenderness. NEUROLOGIC EXAMINATION: Patient is obtunded. ASSESSMENT Acute CVA Chronic persistent atrial fibrillation, telemetry tracings reviewed and reveal persistent atrial fibrillation with episodes of the parents he Hypertension Dyslipidemia Diabetes mellitus PLAN Continue with IV Lopressor 2.5 mg every 6 hours as needed for heart rate greater than 100. Dr. Kaufman will call and update the family on the poor prognosis. Thank you kindly for this consultation. Nurse Practitioner note has been reviewed, I agree with a documented findings and plan of care. Patient was seen and examined. Past Medical History Past Medical History: Atrial Fibrillation, Diabetes Mellitus, Hyperlipidemia, Hypertension History of Any Multi-Drug Resistant Organisms: None Reported Past Surgical History: Hernia Repair Past Anesthesia/Blood Transfusion Reactions: No Reported Reaction Past Psychological History: No Psychological Hx Reported Smoking Status: Never smoker Past Alcohol Use History: None Reported Past Drug Use History: None Reported Medications and Allergies Home Medications Medication Instructions Recorded Confirmed Type metFORMIN HCL [Glucophage] 1,000 mg PO HS 01/25/15 02/23/20 History Apixaban [Eliquis] 5 mg PO BID #60 tab 07/20/16 02/23/20 Rx Glimepiride [Amaryl] 1 mg PO BID #60 tab 07/20/16 02/23/20 Rx Atorvastatin [Lipitor] 20 mg PO DAILY 12/25/18 02/23/20 History Lisinopril-Hctz 20-12.5 mg 1 tab PO BID 12/25/18 02/23/20 History [Zestoretic 20-12.5] Metoprolol Tartrate [Lopressor] 50 mg PO DAILY 12/25/18 02/23/20 History amLODIPine [Norvasc] 5 mg PO DAILY 12/25/18 02/23/20 History Cephalexin [Keflex] 500 mg PO TID 02/23/20 02/23/20 History Dapagliflozin Propanediol [Farxiga] 5 mg PO DAILY 02/23/20 02/23/20 History Pioglitazone [Actos] 15 mg PO Q48H 02/23/20 02/23/20 History Sildenafil Citrate 50 mg PO DAILY PRN 02/23/20 02/23/20 History Allergies Allergy/AdvReac Type Severity Reaction Status Date / Time No Known Allergies Allergy Verified 02/23/20 13:53 Physical Exam Vitals: Vital Signs Temp Pulse Pulse Resp BP BP Pulse Ox 02/24/20 09:30 97.6 F 87 20 152/80 95 02/24/20 04:52 98.8 F 107 H 22 94 L 02/23/20 20:16 98.5 F 83 18 163/86 94 L 02/23/20 17:17 98.5 F 02/23/20 16:13 94.3 F L 96 19 155/75 93 L 02/23/20 15:00 97.6 F 80 18 149/86 02/23/20 14:30 86 21 145/97 96 02/23/20 14:00 72 20 133/87 96 02/23/20 13:30 88 17 141/97 98 02/23/20 13:19 97.6 F 90 18 97 02/23/20 13:10 92 18 153/89 98 02/23/20 12:45 97.6 F 94 18 163/110 96 Intake and Output 02/23/20 02/24/20 02/24/20 22:59 06:59 14:59 Intake Total 225 600 600 Output Total 450 1000 Balance -225 -400 600 Intake: IV 600 Sodium Chloride 0.9% 1, 600 000 ml @ 75 mls/hr IV . [id number] ONE Rx#:[id number] Intake, IV Titration 225 600 Amount Sodium Chloride 0.9% 1, 225 600 000 ml @ 75 mls/hr IV . [id number] ONE Rx#:[id number] Output: Urine 450 1000 Other: Voiding Method Indwelling Catheter Indwelling Catheter # Voids 1 Results 02/24/20 05:57 02/24/20 05:57 Cardiac Enzymes 02/23/20 02/23/20 02/24/20 Range/Units 12:45 12:45 05:57 AST 21 33 (17-59) U/L Troponin I <0.012 (0.000-0.034) ng/mL Coagulation 02/23/20 Range/Units 12:45 PT 11.6 (9.0-12.0) sec APTT 26.6 (22.0-30.0) sec CBC 02/23/20 02/24/20 Range/Units 12:45 05:57 WBC 11.4 H 16.9 H (3.8-10.6) k/uL RBC 5.20 5.23 (4.30-5.90) m/uL Hgb 14.4 14.7 (13.0-17.5) gm/dL Hct 45.3 46.2 (39.0-53.0) % Plt Count 249 318 (150-450) k/uL Comprehensive Metabolic Panel 02/23/20 02/24/20 Range/Units 12:45 05:57 Sodium 136 L 138 (137-145) mmol/L Potassium 3.7 3.6 (3.5-5.1) mmol/L Chloride 101 103 (98-107) mmol/L Carbon Dioxide 28 18 L (22-30) mmol/L BUN 21 H 17 (9-20) mg/dL Creatinine 0.74 0.71 (0.66-1.25) mg/dL Glucose 187 H 163 H (74-99) mg/dL Calcium 9.1 9.1 (8.4-10.2) mg/dL AST 21 33 (17-59) U/L ALT 12 14 (4-49) U/L Alkaline Phosphatase 70 68 (38-126) U/L Total Protein 7.0 7.2 (6.3-8.2) g/dL Albumin 4.1 3.9 (3.5-5.0) g/dL Current Medications Generic Name Dose Route Start Last Admin Trade Name Freq PRN Reason Stop Dose Admin Aspirin 300 mg 02/23/20 17:30 02/23/20 18:10 Aspirin RECTAL 300 mg DAILY [facility] Administration Atorvastatin Calcium 20 mg 02/24/20 09:00 02/24/20 09:41 Lipitor PO Not Given DAILY GUILLERMO Enoxaparin Sodium 40 mg 02/23/20 18:00 02/24/20 10:44 Lovenox SQ 40 mg DAILY [facility] Administration Ceftriaxone Sodium 1 gm/ 50 mls @ 100 mls/hr 02/24/20 10:00 02/24/20 10:44 Sodium Chloride IVPB 100 mls/hr Q24HR GUILLERMO Administration Insulin Aspart 0 unit 02/23/20 17:30 02/24/20 09:41 Novolog SQ Not Given ACHS [facility] Protocol Metoprolol Tartrate 2.5 mg 02/24/20 12:00 02/24/20 10:55 Lopressor IVP Not Given Q6HR [facility] Ondansetron HCl 4 mg 02/23/20 17:08 Zofran IVP Q8HR PRN Nausea And Vomiting Intake and Output 02/23/20 02/24/20 02/24/20 22:59 06:59 14:59 Intake Total 225 600 600 Output Total 450 1000 Balance -225 -400 600 Intake: IV 600 Sodium Chloride 0.9% 1, 600 000 ml @ 75 mls/hr IV . [id number] ONE Rx#:[id number] Intake, IV Titration 225 600 Amount Sodium Chloride 0.9% 1, 225 600 000 ml @ 75 mls/hr IV . [id number] ONE Rx#:[id number] Output: Urine 450 1000 Other: Voiding Method Indwelling Catheter Indwelling Catheter # Voids 1 02/24/20 05:57 02/24/20 05:57
[2020-02-24 12:04] LABS: Glucose,Whole Blood 173 mg/dL (75-99)
[2020-02-24] MEDS: ASPIRIN 300 MG SUPP RECTAL SCH (14:18)
[2020-02-24 16:54] LABS: Glucose,Whole Blood 120 mg/dL (75-99)
[2020-02-24] MEDS: PANTOPRAZOLE 40 MG/10 ML VIAL IVP SCH (17:30)
--- NOTE | 2020-02-24 18:03 | P.PN ---
Subjective Progress Note Date: 02/24/20 Principal diagnosis: Acute CVA with atrial Fib 84 year old male with acute CVA. Patient has right-sided hemiparesis. MRI revealed large left parietal stroke. Patient is randomly moving his left side. Patient does not respond to normal commands. Patient is mildly tachycardic with a heart rate of 102 secondary in A. fib. Objective - Vital Signs Vital signs: Vital Signs Temp 98.2 F 02/24/20 15:44 Pulse 102 H 02/24/20 15:44 Resp 18 02/24/20 15:44 BP 154/78 02/24/20 15:44 Pulse Ox 92 L 02/24/20 15:44 Intake & Output 02/23/20 02/24/20 02/24/20 18:59 06:59 18:59 Intake Total 825 1200 Output Total 450 1000 Balance -450 -175 1200 Weight 90.718 kg Intake: IV 1200 Sodium Chloride 0.9% 1, 1200 000 ml @ 75 mls/hr IV . [id number] ONE Rx#:[id number] Intake, IV Titration 825 Amount Sodium Chloride 0.9% 1, 825 000 ml @ 75 mls/hr IV . [id number] ONE Rx#:[id number] Output: Urine 450 1000 Other: Voiding Method Indwelling Catheter Indwelling Catheter Diaper Incontinent # Voids 1 - Exam General: non responsive Derm: [warm], [dry] Head: [atraumatic], [normocephalic], [symmetric] Eyes: [EOMI], [no lid lag], [anicteric sclera] Mouth: [no lip lesion], [mucus membranes moist] Cardiovascular: [S1S2 reg], [no murmur], [positive posterior tibial pulse bilateral], Lungs: [CTA bilateral], [no rhonchi, no rales] , [no accessory muscle use] Abdominal: [soft], [ nontender to palpation], [no guarding], [no appreciable organomegaly] Ext: [no gross muscle atrophy], [no edema], [no contractures] Neuro:right side hemiparesis - Labs CBC & Chem 7: 02/24/20 05:57 02/24/20 05:57 Labs: Abnormal Lab Results - Last 24 Hours (Table) 02/23/20 02/23/20 02/24/20 Range/Units 18:18 20:16 04:24 WBC (3.8-10.6) k/uL Neutrophils # (1.3-7.7) k/uL Lymphocytes # (1.0-4.8) k/uL Carbon Dioxide (22-30) mmol/L Glucose (74-99) mg/dL POC Glucose (mg/dL) 135 H 136 H 151 H (75-99) mg/dL 02/24/20 02/24/20 02/24/20 Range/Units 05:57 05:57 06:38 WBC 16.9 H (3.8-10.6) k/uL Neutrophils # 14.9 H (1.3-7.7) k/uL Lymphocytes # 0.9 L (1.0-4.8) k/uL Carbon Dioxide 18 L (22-30) mmol/L Glucose 163 H (74-99) mg/dL POC Glucose (mg/dL) 163 H (75-99) mg/dL 02/24/20 02/24/20 Range/Units 12:03 16:53 WBC (3.8-10.6) k/uL Neutrophils # (1.3-7.7) k/uL Lymphocytes # (1.0-4.8) k/uL Carbon Dioxide (22-30) mmol/L Glucose (74-99) mg/dL POC Glucose (mg/dL) 173 H 120 H (75-99) mg/dL Assessment and Plan Assessment: 1. Acute CVA likely caused by atrial fib secondary to non-compliance -left MCA distribution, large acute stroke on MRI -I spoke to the patient's daughter Lena today. Phone number [phone]. She states that her father has had trouble managing his medications. He has likely missed doses and has not been taking them as prescribed. -Eliquis on hold for now due to high risk of hemorrhagic conversion -continue Aspirin, Statin -Neurology consult -PT/OT, speech therapy -2d Echo pending -Carotid US reveals moderate bilateral plaque formation but stenosis is estimated less than 50% in both internal carotid arteries there is increased velocity right external carotid artery that is increased compared to old exam and corresponds to more than 70% stenosis 2. Hx of DM II -oral meds on hold -continue insulin sliding scale 3. Hx of HTN metoprolol IVP q 6 hrs 4. Afib -Eliquis on hold due to large stroke -cardiology consulted -metoprolol IVP prescribed 5. GI and DVT prophylaxis 6. Am labs
[2020-02-24 20:19] LABS: Glucose,Whole Blood 142 mg/dL (75-99)
[2020-02-25 06:24] LABS: Glucose,Whole Blood 132 mg/dL (75-99)
--- NOTE | 2020-02-25 10:00 | ECHOF ---
Referral Reason:CVA MEASUREMENTS -------- HEIGHT: 188.0 cm WEIGHT: 74.4 kg BP: 151/86 AV maxP.24 mmHg AV meanP.97 mmHg RAP: 5.00 mmHg RVSP: 40.44 mmHg FINDINGS -------- Atrial fibrillation. Limited Study Overall left ventricular systolic function is normal with, an EF between 60 - 65 %. There is mild aortic valve sclerosis. There is mild aortic regurgitation. There is mild aortic st enosis present. Peak/mean gradient across the Aortic Valve is 14.24mmHg / 5.97mmHg. Moderate mitral annular calcification present. Mild mitral regurgitation is present. Mild tricuspid regurgitation present. There is mild pulmonary hypertension. The right ventricular systolic pressure, as measured by Doppler, is 40.44mmHg. The pulmonic valve was not well visualized. There is no pericardial effusion. CONCLUSIONS -------- 1. Limited Study 2. Overall left ventricular systolic function is normal with, an EF between 60 - 65 %. 3. There is mild aortic valve sclerosis. 4. There is mild aortic regurgitation. 5. There is mild aortic stenosis present. 6. Peak/mean gradient across the Aortic Valve is 14.24mmHg / 5.97mmHg. 7. Moderate mitral annular calcification present. 8. Mild mitral regurgitation is present. 9. Mild tricuspid regurgitation present. 10. There is mild pulmonary hypertension. 11. There is no pericardial effusion. ROLL HAND: Jillian Salazar RDCS
[2020-02-25] MEDS: ATORVASTATIN 20 MG TAB PO SCH (10:04)
[2020-02-25] MEDS: INSULIN ASPART (NovoLOG) 100 UNIT/ML VIAL SQ SCH ×3 (10:05→17:37)
[2020-02-25] MEDS: ENOXAPARIN 40 MG/0.4 ML SYRINGE SQ SCH (10:22)
[2020-02-25] MEDS: ASPIRIN 300 MG SUPP RECTAL SCH (10:23)
[2020-02-25] MEDS: METOPROLOL TARTRATE 5 MG/5 ML VIAL IVP PRN (10:23)
[2020-02-25] MEDS: PANTOPRAZOLE 40 MG/10 ML VIAL IVP SCH (10:23)
[2020-02-25 11:41] LABS: Glucose,Whole Blood 124 mg/dL (75-99)
--- NOTE | 2020-02-25 11:54 | P.PN ---
Subjective Progress Note Date: 02/25/20 This is a pleasant 84-year-old male past medical history significant for chronic persistent atrial fibrillation on long-term anticoagulation with Eliquis, dyslipidemia, diabetes mellitus and hypertension. He follows in the office with Dr. Kaufman. Cardiology waqs requested to see in consultation for atrial fibrillation. He was brought to the hospital after being found unresponsive in his home for unknown amount of time. He was found to have suffered a large acute left middle cerebral artery infarct. The patient was seen and examined this morning, Dr. Kaufman also gave the son a call to update him on the patient's condition. The decision was basically made to keep the patient comfortable. He is not currently taking any oral medications. Blood pressure 150/80, heart rate in the 90s. Objective - Vital Signs Vital signs: Vital Signs Temp 98.4 F 02/25/20 08:55 Pulse 99 02/25/20 08:55 Resp 16 02/25/20 08:55 BP 179/84 02/25/20 08:55 Pulse Ox 96 02/25/20 08:55 Intake & Output 02/24/20 02/25/20 02/25/20 18:59 06:59 18:59 Intake Total 1200 Output Total 1400 Balance 1200 -1400 Weight 74.5 kg Intake: IV 1200 Sodium Chloride 0.9% 1, 1200 000 ml @ 75 mls/hr IV . [id number] ONE Rx#:[id number] Output: Urine 1400 Other: Voiding Method Diaper Diaper Incontinent Incontinent # Voids 1 1 1 - Exam PHYSICAL EXAMINATION Blood pressure 152/80 heart rate 87 afebrile and maintaining oxygen saturation on room air. CONSTITUTIONAL: No apparent distress. HEENT: Head is normocephalic. Pupils are equal, round. Sclerae anicteric. Mucous membranes of the mouth are moist. No JVD. No carotid bruit. CHEST EXAMINATION: Lungs are clear to auscultation. No chest wall tenderness is noted on palpation or with deep breathing. HEART EXAMINATION: Irregular rate and rhythm. S1, S2 heard. No murmurs, gallops or rub. ABDOMEN: Soft, nontender. Positive bowel sounds. EXTREMITIES: 2+ peripheral pulses, no lower extremity edema and no calf tenderness. NEUROLOGIC EXAMINATION: Patient is obtunded. - Labs CBC & Chem 7: 02/24/20 05:57 02/24/20 05:57 Labs: Abnormal Lab Results - Last 24 Hours (Table) 02/24/20 02/24/20 02/24/20 Range/Units 12:03 16:53 20:17 POC Glucose (mg/dL) 173 H 120 H 142 H (75-99) mg/dL 02/25/20 02/25/20 Range/Units 06:23 11:40 POC Glucose (mg/dL) 132 H 124 H (75-99) mg/dL Assessment and Plan Plan: ASSESSMENT #1Acute CVA #2Chronic persistent atrial fibrillation, telemetry tracings reviewed and reveal persistent atrial fibrillation with episodes of the parents he #3Hypertension #4Dyslipidemia #5Diabetes mellitus Plan From cardiology's perspective, we'll continue current therapy on this patient. Dr. Kaufman had a lengthy discussion with the patient's son, we will keep the patient comfortable at this time. DNP note has been reviewed, I agree with a documented findings and plan of care. Patient was seen and examined.
--- NOTE | 2020-02-25 13:38 | P.PN ---
Subjective Progress Note Date: 02/25/20 Principal diagnosis: Stroke Patient still unresponsive, no overnight issues. P[facility] Cl[facility] Dr. Kaufman had a lengthy discussion with patient's son and decision was made to make patient comfortable. Objective - Vital Signs Vital signs: Vital Signs Temp 98.4 F 02/25/20 08:55 Pulse 99 02/25/20 08:55 Resp 16 02/25/20 08:55 BP 179/84 02/25/20 08:55 Pulse Ox 96 02/25/20 08:55 Intake & Output 02/24/20 02/25/20 02/25/20 18:59 06:59 18:59 Intake Total 1200 Output Total 1400 Balance 1200 -1400 Weight 74.5 kg Intake: IV 1200 Sodium Chloride 0.9% 1, 1200 000 ml @ 75 mls/hr IV . [id number] ONE Rx#:[id number] Output: Urine 1400 Other: Voiding Method Diaper Diaper Incontinent Incontinent # Voids 1 1 1 - Exam General: non responsive Derm: [warm], [dry] Head: [atraumatic], [normocephalic], [symmetric] Eyes: [EOMI], [no lid lag], [anicteric sclera] Mouth: [no lip lesion], [mucus membranes moist] Cardiovascular: [S1S2 reg], [no murmur], [positive posterior tibial pulse bilateral], Lungs: [CTA bilateral], [no rhonchi, no rales] , [no accessory muscle use] Abdominal: [soft], [ nontender to palpation], [no guarding], [no appreciable organomegaly] Ext: [no gross muscle atrophy], [no edema], [no contractures] Neuro:right side hemiparesis - Labs CBC & Chem 7: 02/24/20 05:57 02/24/20 05:57 Labs: Abnormal Lab Results - Last 24 Hours (Table) 02/24/20 02/24/20 02/25/20 Range/Units 16:53 20:17 06:23 POC Glucose (mg/dL) 120 H 142 H 132 H (75-99) mg/dL 02/25/20 Range/Units 11:40 POC Glucose (mg/dL) 124 H (75-99) mg/dL Assessment and Plan Plan: 1. 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 D/W son and daughter. -Eliquis on hold for now due to high risk of hemorrhagic conversion -continue Aspirin, Statin -Neurology consulted -PT/OT, -speech evaluation not done due to patient's unresponsiveness -2d Echo and carotid US reviewed 2. Hx of DM II -oral meds on hold -continue insulin sliding scale 3. Hx of HTN metoprolol IVP q 6 hrs 4. Afib -Eliquis on hold due to large stroke -cardiology consulted -metoprolol IVP prescribed 5. GI and DVT prophylaxis
--- NOTE | 2020-02-25 14:42 | P.CNNES ---
History of Present Illness Consult date: 02/25/20 Requesting physician: Jade Solano Reason for Consult: Stroke History of Present Illness: Patient is a 84-year-old male, who was brought to the hospital on 02/23/2020 at 12:45 PM, due to being found unresponsive and incontinent of stool. Patient was aphasic. Patient was last known well was the day prior to arrival on Tuesday. When his son came over on Tuesday, he was in above- mentioned condition. Patient was not following, wants. His blood glucose was 500. Blood pressure on arrival was 163/110, pulse rate 94, temperature 97.6. Patient continues to be a aphasic and right hemiplegic. EMS flow seen not available in the chart. Patient underwent CT head showed no acute intracranial abnormality. Generalized changes of atrophy. Chronic white matter ischemic change. Chest x-ray showed cardiomegaly and vascular congestion. EKG showed atrial fibrillation with competing junctional pacemaker with premature ventricular or aberrantly conducted complexes. Carotid Doppler showed antegrade flow in the vertebral arteries. There is moderate bilateral plaque formation but stenosis is estimated less than 50% in both internal carotid arteries. There is decreased diastolic flow in both carotid arteries. MRI of the brain performed for 03/10/2020 showed large acute left middle cerebral artery distribution infarct involving the left temporal lobe and left parietal lobe. 2-D echo showed atrial fibrillation. EF is 60-65%. Mild aortic valve sclerosis. Mild aortic regurgitation. Mild aortic stenosis. Mild MR. Patient's blood test shows normal electrolytes. Hemoglobin A1c 10.2 on 04/2020. Patient's total cholesterol is 204, LDL 126, HDL 48 and triglycerides 149. Urine drug screen negative. UA showed trace protein, 1+ ketones and 4+ glucose. Patient's WBC is 16.9 hemoglobin 14.7 and platelets are 3 or 18. Patient outside has been taking Apixaban 5 mg twice a day. Patient has history of hypertension and diabetes. Review of Systems ROS unobtainable: due to mental status Past Medical History Past Medical History: Atrial Fibrillation, Diabetes Mellitus, Hyperlipidemia, Hypertension History of Any Multi-Drug Resistant Organisms: None Reported Past Surgical History: Hernia Repair Past Anesthesia/Blood Transfusion Reactions: No Reported Reaction Past Psychological History: No Psychological Hx Reported Smoking Status: Never smoker Past Alcohol Use History: None Reported Past Drug Use History: None Reported Medications and Allergies Home Medications Medication Instructions Recorded Confirmed Type metFORMIN HCL [Glucophage] 1,000 mg PO HS 01/25/15 02/23/20 History Apixaban [Eliquis] 5 mg PO BID #60 tab 07/20/16 02/23/20 Rx Glimepiride [Amaryl] 1 mg PO BID #60 tab 07/20/16 02/23/20 Rx Atorvastatin [Lipitor] 20 mg PO DAILY 12/25/18 02/23/20 History Lisinopril-Hctz 20-12.5 mg 1 tab PO BID 12/25/18 02/23/20 History [Zestoretic 20-12.5] Metoprolol Tartrate [Lopressor] 50 mg PO DAILY 12/25/18 02/23/20 History amLODIPine [Norvasc] 5 mg PO DAILY 12/25/18 02/23/20 History Cephalexin [Keflex] 500 mg PO TID 02/23/20 02/23/20 History Dapagliflozin Propanediol [Farxiga] 5 mg PO DAILY 02/23/20 02/23/20 History Pioglitazone [Actos] 15 mg PO Q48H 02/23/20 02/23/20 History Sildenafil Citrate 50 mg PO DAILY PRN 02/23/20 02/23/20 History Allergies Allergy/AdvReac Type Severity Reaction Status Date / Time No Known Allergies Allergy Verified 02/23/20 13:53 Physical Examination - Vital Signs Vital Signs: Vital Signs Temp Pulse Pulse Resp BP Pulse Ox 02/25/20 08:55 98.4 F 99 16 179/84 96 02/25/20 04:00 98.1 F 83 84 18 151/86 96 02/25/20 00:00 97.0 F L 83 83 18 160/81 93 L 02/24/20 20:00 98.4 F 94 18 155/76 94 L 02/24/20 18:01 96 02/24/20 15:44 98.2 F 102 H 18 154/78 92 L Intake and Output 02/24/20 02/25/20 02/25/20 22:59 06:59 14:59 Intake Total 600 Output Total 1400 Balance 600 -1400 Intake: IV 600 Sodium Chloride 0.9% 1, 600 000 ml @ 75 mls/hr IV . [id number] ONE Rx#:[id number] Output: Urine 1400 Other: Voiding Method Diaper Diaper Incontinent Incontinent # Voids 1 1 Weight 74.5 kg On examination patient is an elderly male, who is obviously globally aphasic, right hemiplegic. He cannot name, repeat, follow commands. He has slight left gaze preference. He has right facial weakness. He moves his left arm and left leg fairly well, although does not follow commands. He tries minimal squeezing on the left because of lack of comprehension, but holds the left, up in the air for some time. He has clear Babinski on the right side. Sensory couldn't be assessed. Cerebellar could not be assessed. Results - Laboratory Findings CBC and BMP: 02/24/20 05:57 02/24/20 05:57 Abnormal Lab Findings: Abnormal Labs 02/23/20 02/23/20 02/23/20 12:45 12:45 12:45 WBC 11.4 H Neutrophils # 10.3 H Lymphocytes # 0.6 L Sodium 136 L Carbon Dioxide BUN 21 H Glucose 187 H POC Glucose (mg/dL) Urine Protein Trace H Urine Glucose (UA) 4+ H Urine Ketones 1+ H 02/23/20 02/23/20 02/23/20 12:57 18:18 20:16 WBC Neutrophils # Lymphocytes # Sodium Carbon Dioxide BUN Glucose POC Glucose (mg/dL) 254 H 135 H 136 H Urine Protein Urine Glucose (UA) Urine Ketones 02/24/20 02/24/20 02/24/20 04:24 05:57 05:57 WBC 16.9 H Neutrophils # 14.9 H Lymphocytes # 0.9 L Sodium Carbon Dioxide 18 L BUN Glucose 163 H POC Glucose (mg/dL) 151 H Urine Protein Urine Glucose (UA) Urine Ketones 02/24/20 02/24/20 02/24/20 06:38 12:03 16:53 WBC Neutrophils # Lymphocytes # Sodium Carbon Dioxide BUN Glucose POC Glucose (mg/dL) 163 H 173 H 120 H Urine Protein Urine Glucose (UA) Urine Ketones 02/24/20 02/25/20 02/25/20 20:17 06:23 11:40 WBC Neutrophils # Lymphocytes # Sodium Carbon Dioxide BUN Glucose POC Glucose (mg/dL) 142 H 132 H 124 H Urine Protein Urine Glucose (UA) Urine Ketones Assessment and Plan Assessment: * Acute ischemic CVA, left frontal parietal region, in the left MCA vascular territory. CVA appears embolic due to history of atrial fibrillation. Patient was on Apixaban 5 mg twice a day, although uncertain if he was compliant with the medication. * Diabetes, poorly controlled * Atrial fibrillation * Hypertension Plan: * Patient has atrial fibrillation. Anticoagulation has been held because of moderate size CVA. Patient currently on aspirin 300 mg rectally daily. Also on Lovenox 40 mg daily. * May resume Eliquis when able to take by mouth. * Optimize control of diabetes to target A1c <7.0 * Gastric ulcer and DVT prophylaxis. * PT OT and speech therapy.
[2020-02-25 16:33] LABS: Glucose,Whole Blood 117 mg/dL (75-99)
[2020-02-25 21:11] LABS: Glucose,Whole Blood 114 mg/dL (75-99)
[2020-02-25 21:24] VITALS: RESP 18
[2020-02-26] MEDS: INSULIN ASPART (NovoLOG) 100 UNIT/ML VIAL SQ SCH ×2 (03:56→08:25)
[2020-02-26 04:00] LABS: Hemoglobin A1C 8.1 % (4.0-6.0)
[2020-02-26 06:30] LABS: Glucose,Whole Blood 189 mg/dL (75-99)
[2020-02-26] MEDS: PANTOPRAZOLE 40 MG/10 ML VIAL IVP SCH (08:36)
[2020-02-26] MEDS: ATORVASTATIN 20 MG TAB PO SCH (08:37)
[2020-02-26] MEDS: ENOXAPARIN 40 MG/0.4 ML SYRINGE SQ SCH (08:37)
[2020-02-26] MEDS: METOPROLOL TARTRATE 5 MG/5 ML VIAL IVP PRN (08:47)
[2020-02-26 08:50] VITALS: BP 170/85; PULSE 104; TEMP 97.6
[2020-02-26] MEDS: ASPIRIN 300 MG SUPP RECTAL SCH (09:35)
--- NOTE | 2020-02-26 11:34 | P.DS ---
Providers Date of admission: 02/23/20 14:05 Expected date of discharge: 02/26/20 Attending physician: Suzanne Tam, DO Consults: 02/23/20 17:15 Consult Physician Urgent Consulting Provider: Coreen Juarez Consult Reason/Comments: CVA Do you want consulting provider notified?: Yes 02/24/20 09:55 Consult Physician Routine Consulting Provider: Adair Kumari Consult Reason/Comments: strial fib Do you want consulting provider notified?: Yes 02/24/20 10:24 Consult Physician Routine Consulting Provider: Adair Kumari Consult Reason/Comments: atrial fib Do you want consulting provider notified?: Yes 02/24/20 11:20 Consult Physician Routine Consulting Provider: Coreen Juarez Consult Reason/Comments: cva Do you want consulting provider notified?: Yes 02/25/20 09:22 Consult Physician Urgent Consulting Provider: Sunshine Lewis Consult Reason/Comments: stroke Do you want consulting provider notified?: Yes Primary care physician: [facility] Course: 84 yo male, found on to be unresponsive on the floor by his son. Last seen normal was the day before. Patient's eyes were open, he was sometimes tracing but was not responding of following commands, non verbal. His daughter stated that he has a history of CVA in the past with no significant residual weakness, he supposed to be taking Eliquis for afib but he was inconsistent with that. According to her daughter patient has been in his normal state of health the day before and did not have any symptoms. Evaluation in the emergency department with head Ct revealed no acute intracranial process. On exam he was moving his legs and left arm only, his right arm and leg were flacid. When he was seen in the emergency department he was outside tPA window, and also because he was on Eliquis he was not given TPA. Chest x-ray showed cardiomegaly and vascular congestion. EKG showed atrial fibrillation with competing junctional pacemaker with premature ventricular or aberrantly conducted complexes. Carotid Doppler showed antegrade flow in the vertebral arteries. There is moderate bilateral plaque formation but stenosis is estimated less than 50% in both internal carotid arteries. MRI of the brain performed for 03/10/2020 showed large acute left middle cerebral artery distribution infarct involving the left temporal lobe and left parietal lobe. 2-D echo showed atrial fibrillation. EF is 60-65%. Mild aortic valve sclerosis. Mild aortic regurgitation. Mild aortic stenosis. Mild MR. Patient's blood test shows normal electrolytes. Hemoglobin A1c 10.2 on 11/26/2019. Patient's total cholesterol is 204, LDL 126, HDL 48 and triglycerides 149. Urine drug screen negative. UA showed trace protein, 1+ ketones and 4+ glucose. Patient's WBC is 16.9 hemoglobin 14.7 and platelets are 3 or 18. Patient was seen by neurology, the recommendation was to give him aspirin 300 mg rectally daily. He was also on Lovenox 40 mg daily. Over the course of hospitalization he did not make any significant progress. Due to that and the fact that the stroke that he has was severe and meaningful recovery from it in fact is not achievable. I discussed his condition with his son as well as his d arneljenniferer on the phone and the consensus was reached to make him comfort measures. Hospice was consulted and he'll be discharged home under hospice care. Time for discharge 35 minutes Plan - Discharge Summary New Discharge Prescriptions: No Action metFORMIN HCL [Glucophage] 1,000 mg PO HS Apixaban [Eliquis] 5 mg PO BID #60 tab Glimepiride [Amaryl] 1 mg PO BID #60 tab Lisinopril-Hctz 20-12.5 mg [Zestoretic 20-12.5] 1 tab PO BID amLODIPine [Norvasc] 5 mg PO DAILY Atorvastatin [Lipitor] 20 mg PO DAILY Metoprolol Tartrate [Lopressor] 50 mg PO DAILY Cephalexin [Keflex] 500 mg PO TID Pioglitazone [Actos] 15 mg PO Q48H Dapagliflozin Propanediol [Farxiga] 5 mg PO DAILY Sildenafil Citrate 50 mg PO DAILY PRN PRN Reason: E.D. Discharge Medication List metFORMIN HCL [Glucophage] 1,000 mg PO HS 01/25/15 [History] Apixaban [Eliquis] 5 mg PO BID #60 tab 07/20/16 [Rx] Glimepiride [Amaryl] 1 mg PO BID #60 tab 07/20/16 [Rx] Atorvastatin [Lipitor] 20 mg PO DAILY 12/25/18 [History] Lisinopril-Hctz 20-12.5 mg [Zestoretic 20-12.5] 1 tab PO BID 12/25/18 [History] Metoprolol Tartrate [Lopressor] 50 mg PO DAILY 12/25/18 [History] amLODIPine [Norvasc] 5 mg PO DAILY 12/25/18 [History] Cephalexin [Keflex] 500 mg PO TID 02/23/20 [History] Dapagliflozin Propanediol [Farxiga] 5 mg PO DAILY 02/23/20 [History] Pioglitazone [Actos] 15 mg PO Q48H 02/23/20 [History] Sildenafil Citrate 50 mg PO DAILY PRN 02/23/20 [History] Follow up Appointment(s)/Referral(s): Robert Carlisle MD [Primary Care Provider] - 1-2 days Activity/Diet/Wound Care/Special Instructions: home with [facility] Discharge Disposition: HOME WITH HOSPICE
== END 2020-02-26 09:45 | disposition hospice, home (50) | DRG 64 ==
LOC: EC 12:45 → 5NMEDONC 14:05 → 3SCARD 02-24 09:24
PROVIDERS: ADMIT Internal Medicine; ATTEND Internal Medicine
DX: I63.412 Cerebral infarction due to embolism of left middle cerebral artery (principal); R40.2343 Coma scale, best motor response, flexion withdrawal, at hospital admission; R40.2213 Coma scale, best verbal response, none, at hospital admission; G81.91 Hemiplegia, unspecified affecting right dominant side; I48.19 Other persistent atrial fibrillation; E11.65 Type 2 diabetes mellitus with hyperglycemia; E78.5 Hyperlipidemia, unspecified; Z51.5 Encounter for palliative care; Z66 Do not resuscitate; I08.3 Combined rheumatic disorders of mitral, aortic and tricuspid valves; I27.20 Pulmonary hypertension, unspecified; R47.01 Aphasia; R40.2133 Coma scale, eyes open, to sound, at hospital admission; I10 Essential (primary) hypertension; Z79.82 Long term (current) use of aspirin; Z98.890 Other specified postprocedural states; Z79.4 Long term (current) use of insulin; Z79.01 Long term (current) use of anticoagulants; Z79.899 Other long term (current) drug therapy; Z82.49 Family history of ischemic heart disease and other diseases of the circulatory system; Z86.73 Personal history of transient ischemic attack (TIA), and cerebral infarction without residual deficits; Z91.19 Patient's noncompliance with other medical treatment and regimen
CPT/HCPCS: 36415; 70450; 70551; 71045; 71046; 80053; 80306; 81003; 82009; 83036; 83605; 83735; 83880; 84484; 85025; 85610; 85730; 87040; 93005; 93308; 93880; 96360; 99285